=== PATIENT | female | born 1970 | race Caucasian/White ===

== ENCOUNTER 2017-11-21 07:47 | Emergency (ER) | payer MEDICAID ==
[~2017-11-21] VITALS: Ht 170.2 cm; Wt 71.9 kg
[2017-11-21] MEDS ORDERED: KETOROLAC 30 MG/1 ML IM ONE (10:00)
[2017-11-21] MEDS ORDERED: DIAZEPAM 5 MG TABLET PO ONE (10:00)
[2017-11-21] MEDS ORDERED: KETOROLAC 30 MG/1 ML ONE (10:00)
[2017-11-21] MEDS ORDERED: DIAZEPAM 5 MG TABLET ONE (10:00)
[2017-11-21 11:19] VITALS: BP 118/75
== END 2017-11-21 11:22 | disposition home or self-care (01) ==
LOC: ED 11:18
DX: G89.29 Other chronic pain (principal); M25.531 Pain in right wrist; M51.36 Other intervertebral disc degeneration, lumbar region; S39.012A Strain of muscle, fascia and tendon of lower back, initial encounter; J45.909 Unspecified asthma, uncomplicated; F17.200 Nicotine dependence, unspecified, uncomplicated; Z79.899 Other long term (current) drug therapy; X58.XXXA Exposure to other specified factors, initial encounter; Y93.89 Activity, other specified; Y99.8 Other external cause status; Y92.89 Other specified places as the place of occurrence of the external cause
CPT/HCPCS: 72110; 73110; 96372; 99284; J1885